=== PATIENT | female | born 1975 | race African-American/Black ===

== ENCOUNTER 2018-09-12 23:24 | Emergency (ER) | payer BC ==
[~2018-09-12] VITALS: Ht 160 cm; Wt 113.4 kg
--- OUTSIDE RECORDS SUMMARY | 2018-09-12 23:27 | XMS REPORT | Clinical Summary ---
Author Author [facility] Address Unknown Phone Unavailable Care Team Providers Care [employer] Supervisor Name Role Phone Elliot Christiansen MD PCP Allergies No Known Allergies Medications End Date Status Medication Sig Dispensed Refills Start Date 10/24/2017 Discontinued traMADol (ULTRAM) 50 mg Take 1 tablet 60 tablet 0 tablet (50 mg total) 7 by mouth every 4 (four) hours as needed for moderate pain. 10/24/2017 Discontinued liraglutide (SAXENDA) 3 Inject 3 mg 15 mL 3 mg/0.5 mL (18 mg/3 mL) under the 7 pen injectorIndications: skin daily Weight Loss Management Indications: for Obese Patient (BMI Weight Loss >=30) Management for Obese Patient (BMI >=30). 01/11/2018 cholecalciferol, vitamin Take 1 8 capsule 0 D3, 50,000 unit capsule capsule 8 (50,000 Units total) by mouth once a week for 60 days. Active Problems Problem Noted Date Leucocytosis 04/24/2017 Well woman exam with routine gynecological exam 04/07/2017 Paradoxical insomnia 04/07/2017 Morbid obesity due to excess calories 04/07/2017 Screening for cervical cancer 04/07/2017 Screen for STD (sexually transmitted disease) 04/07/2017 Encounters Care Team Description Date Type Specialty Jen Garcia MD 11/12/2017 Orders Only Internal Medicine Jen Garcia MD Endometriosis; Uterine leiomyoma, unspecified location 11/02/2017 Hospital Radiology Encounter Jen Garcia MD Screening mammogram, encounter for 10/27/2017 Hospital Radiology Encounter Jen Garcia MD No Show 10/26/2017 Hospital Radiology Encounter Jen Garcia MD Routine general medical examination at a health care facility (Primary Dx); Other fatigue; Sleep apnea, unspecified type; Nonintractable headache, unspecified chronicity pattern, unspecified headache type; Leukocytosis, unspecified type; Abdominal pain, unspecified abdominal location; Endometriosis; Uterine leiomyoma, unspecified location; Screening mammogram, encounter for 10/24/2017 Office Visit Internal Medicine Toyin Espitia MD 09/29/2017 Telephone General Surgery after 09/11/2017 Family History Medical History Relation Name Comments Asthma Brother Eczema Brother Asthma Father Cancer Father prostate Diabetes Father Eczema Father Prostate cancer Father Diabetes Mother Hypertension Mother Relation Name Status Comments Brother Alive Father Alive Mother Alive Social History Date Tobacco Use Types Packs/Day Years Used Never Smoker Smokeless Tobacco: Never Used Tobacco Cessation: Counseling Given: No Alcohol Use Drinks/Week oz/Week Comments No Sex Assigned at Date Recorded Not on file Industry Job Start Date Occupation Not on file Not on file Not on file Travel End Travel History Travel Start No recent travel history available. Last Filed Vital Signs Time Taken Vital Sign Reading 10/24/2017 9:25 AM TREATMENT SUPERVISOR Blood Pressure 129/88 10/24/2017 9:25 AM TREATMENT SUPERVISOR Pulse 71 10/24/2017 9:25 AM TREATMENT SUPERVISOR Temperature 36.7 C (98 F) - Respiratory Rate - 10/24/2017 9:25 AM TREATMENT SUPERVISOR Oxygen Saturation 100% - Inhaled Oxygen - Concentration 11/02/2017 11:00 AM TREATMENT SUPERVISOR Weight 113 kg (250 lb) 10/24/2017 9:25 AM TREATMENT SUPERVISOR Height 160 cm (5' 3") 11/02/2017 11:00 AM TREATMENT SUPERVISOR Body Mass Index 44.29 Plan of Treatment Health Maintenance Due Date Last Done Comments INFLUENZA VACCINE 04/11/2018 CERVICAL CANCER SCREENING 04/12/2020 04/12/2017, 04/07/2014 Procedures Comments Procedure Name Priority Date/Time Associated Diagnosis MRI PELVIS UTERINE Routine 11/02/2017 Endometriosis FIBROIDS 12:01 PM TREATMENT SUPERVISOR Uterine leiomyoma, unspecified location MAMMO BREAST SCREEN Routine 10/27/2017 Screening mammogram, TOMOSYNTHESIS BILATERAL 10:41 AM TREATMENT SUPERVISOR encounter for ECG 12-LEAD Routine 10/24/2017 Routine general medical 11:41 AM TREATMENT SUPERVISOR examination at a health care facility FERRITIN LEVEL Routine 10/24/2017 Routine general medical 10:47 AM TREATMENT SUPERVISOR examination at a health care facility Other fatigue VITAMIN D 25 HYDROXY Routine 10/24/2017 Routine general medical LEVEL 10:47 AM TREATMENT SUPERVISOR examination at a health care facility VITAMIN B12 LEVEL Routine 10/24/2017 Routine general medical 10:47 AM TREATMENT SUPERVISOR examination at a health care facility URINALYSIS, AUTOMATED Routine 10/24/2017 Routine general medical WITH MICROSCOPY 10:47 AM TREATMENT SUPERVISOR examination at a health care facility THYROID STIMULATING Routine 10/24/2017 Routine general medical HORMONE 10:47 AM TREATMENT SUPERVISOR examination at a health care facility T4, FREE Routine 10/24/2017 Routine general medical 10:47 AM TREATMENT SUPERVISOR examination at a health care facility T3, FREE Routine 10/24/2017 Routine general medical 10:47 AM TREATMENT SUPERVISOR examination at a health care facility LIPID PANEL Routine 10/24/2017 Routine general medical 10:47 AM TREATMENT SUPERVISOR examination at a health care facility HEMOGLOBIN A1C Routine 10/24/2017 Routine general medical 10:47 AM TREATMENT SUPERVISOR examination at a health care facility COMPREHENSIVE METABOLIC Routine 10/24/2017 Routine general medical PANEL 10:47 AM TREATMENT SUPERVISOR examination at a health care facility after 09/11/2017 Results * MRI Pelvis Uterine Fibroids (11/02/2017 12:01 PM TREATMENT SUPERVISOR) Narrative Performed At EXAMINATION:MRI PELVIS UTERINE FIBROIDS [facility] CLINICAL HISTORY:N80.9 Endometriosisunspecified, D25.9 Leiomyoma of uterusunspecified, fibroids TECHNIQUE:Multiplanar, multisequence MR imaging examination of the pelvis obtained prior to and following gadolinium IV contrast. COMPARISON:Pelvic ultrasound, 04/17/2017 IMPRESSION: 1.Uterus is lobulated in contours due to multiple fibroids. Overall it measures 10.3 x 9.7 x 9.3 cm. 2.Numerous intramural and partially exophytic subserosal fibroids. The majority are viable and enhance uniformly, though several are necrotic and degenerated.The largest of these is intramural fibroid along the ventral aspect of the uterine corpus at midline measuring 4 cm in diameter. It demonstrates a hypointense rim with some blooming, corresponding to the rim calcification demonstrated on the ultrasound.A couple subserosal fibroid along the left side of the uterine corpus each measuring 1.8 cm, a smaller intramural fibroid posteriorly at midline measuring 1 cm, and an intramural fibroid along the right side of the uterine corpus measuring 1.7 cm are likewise necrotic and degenerated. 3.The largest viable fibroid is partially exophytic subserosal along the dorsal aspect of the uterine fundus at midline measuring 4 cm. The majority of the fibroids, which essentially completely replace the uterus, enhance uniformly. 4.The endometrial stripe is not discernible due to the numerous fibroids throughout the uterus. 5.Follicles on each ovary without focal lesion on either side. 6.Trace free fluid in the pelvis is likely physiologic. No lymphadenopathy identified. Tampon in the vagina. 7.Visualized bones show no suspicious lesion. 8.Visualized portions of the sciatic nerves are well-maintained. SUMMARY: Fibroids throughout the uterus as detailed above. Nonvisualization of the endometrium. [facility]-[id number] Procedure Note [facility], Radiology Results Incoming - 11/02/2017 3:32 PM TREATMENT SUPERVISOR EXAMINATION: MRI PELVIS UTERINE FIBROIDS CLINICAL HISTORY: N80.9 Endometriosis unspecified, D25.9 Leiomyoma of uterus unspecified, fibroids TECHNIQUE: Multiplanar, multisequence MR imaging examination of the pelvis obtained prior to and following gadolinium IV contrast. COMPARISON: Pelvic ultrasound, 04/17/2017 IMPRESSION: 1. Uterus is lobulated in contours due to multiple fibroids. Overall it measures 10.3 x 9.7 x 9.3 cm. 2. Numerous intramural and partially exophytic subserosal fibroids. The majority are viable and enhance uniformly, though several are necrotic and degenerated. The largest of these is intramural fibroid along the ventral aspect of the uterine corpus at midline measuring 4 cm in diameter. It demonstrates a hypointense rim with some blooming, corresponding to the rim calcification demonstrated on the ultrasound. A couple subserosal fibroid along the left side of the uterine corpus each measuring 1.8 cm, a smaller intramural fibroid posteriorly at midline measuring 1 cm, and an intramural fibroid along the right side of the uterine corpus measuring 1.7 cm are likewise necrotic and degenerated. 3. The largest viable fibroid is partially exophytic subserosal along the dorsal aspect of the uterine fundus at midline measuring 4 cm. The majority of the fibroids, which essentially completely replace the uterus, enhance uniformly. 4. The endometrial stripe is not discernible due to the numerous fibroids throughout the uterus. 5. Follicles on each ovary without focal lesion on either side. 6. Trace free fluid in the pelvis is likely physiologic. No lymphadenopathy identified. Tampon in the vagina. 7. Visualized bones show no suspicious lesion. 8. Visualized portions of the sciatic nerves are well-maintained. SUMMARY: Fibroids throughout the uterus as detailed above. Nonvisualization of the endometrium. [facility]-[id number] Performing Organization Address [facility] Phone Number [email or web address] [address] [place] [address] * Mammo Breast Screen Tomosynthesis Bilateral (10/27/2017 10:41 AM TREATMENT SUPERVISOR) Narrative Performed At PROCEDURE:MAMMO BREAST SCREEN [facility] TECHNIQUE: Tomosynthesis images with reconstructed images and computed aided detection (CAD) is utilized in the interpretation of this exam. COMPARISON: 10/12/2015, 06/28/2016 HISTORY: 42-year-old female presents for screening mammogram. No current breast issues. No family history of breast cancer. FINDINGS: The breasts are heterogeneously dense which could obscure the detection of small masses. No masses or malignant calcifications are identified. IMPRESSION: No specific mammographic evidence of malignancy. RECOMMENDATION: Next screening mammogram with tomosynthesis is recommended in one year. BI-RADS 1: Negative This facility is accredited by The [place] [employer] for Mammography. A negative x-ray report should not delay biopsy if a dominant or clinically suspicious mass is present. Not all cancers are identified by x-ray.Should you note any changes during your monthly breast self-examination, please notify your doctor.In addition to the above, we recommend you have a breast examination by your healthcare provider every year. [id number] Performing Organization Address [facility]/[employer] Phone Number [employer] [address] [place] [address] * ECG 12 lead (10/24/2017 11:41 AM TREATMENT SUPERVISOR) Ventricular rate 64 [facility] Atrial rate 64 [facility] WI interval 148 [facility] QRSD interval 88 [facility] QT interval 408 [facility] QTC interval 420 [facility] MUSE P axis 1 29 [facility] MUSE QRS axis 1 30 [facility] MUSE T wave axis 26 [facility] MUSE EKG impression Normal sinus rhythm-Normal [facility] MUSE ECG-No previous ECGs available- Performing Organization Address [facility] Phone Number [facility] MUSE [address] [place] [address] * Vitamin D 25 hydroxy level (10/24/2017 10:47 AM TREATMENT SUPERVISOR) Vitamin D, 25-hydroxy 19 (L) 30 - 100 ng/mL [facility] Comment: [facility] Vitamin D Status 25-OH Vitamin D: Deficiency: <20 ng/mL Insufficiency: 20 - 29 ng/mL Optimal: > or=30 ng/mL For 25-OH Vitamin D testing on patients on D2-supplementation and patients for whom quantitation of D2 and D3 fractions is required, the QuestAssureD(TM) 25-OH VIT D, (D2,D3), LC/MS/MS is recommended: order code [id number] (patients >2yrs). For more information on this test, go to: http://education.[employer]/faq/QXQ388 (This link is being provided for informational/educational purposes only.) Specimen Blood Resulting Agency Comment Performing Organization Information: Site ID: [id number] Name: [facility] Address: [address] [place] [phone] Director: Beti Marks MD Performing Organization Address [facility] Phone Number [place] [address] * Urinalysis, automated with microscopy (10/24/2017 10:47 AM TREATMENT SUPERVISOR) Color, UA DARK YELLOW YELLOW [facility] Appearance CLEAR CLEAR [facility] [place] Specific gravity, urine 1.025 1.001 - 1.035 [facility] [place] pH, urine 5.5 5.0 - 8.0 [facility] [place] Glucose, urine NEGATIVE NEGATIVE [facility] [place] Bilirubin, UA NEGATIVE NEGATIVE [facility] [place] Ketones, UA NEGATIVE NEGATIVE [facility] [place] Occult blood, urine NEGATIVE NEGATIVE [facility] [place] Protein, UA NEGATIVE NEGATIVE [facility] [place] Nitrite, UA NEGATIVE NEGATIVE [facility] [place] Leukocyte esterase, UA NEGATIVE NEGATIVE [facility] WBC, UA NONE SEEN < OR=5 /HPF [facility] [place] RBC, UA NONE SEEN < OR=2 /HPF [facility] [place] Squamous epithelial 0-5 < OR=5 /HPF [facility] cells, UA [facility] Bacteria, UA NONE SEEN NONE SEEN /HPF [facility] [place] Hyaline casts, UA NONE SEEN NONE SEEN /LPF [facility] Specimen Urine Resulting Agency Comment Performing Organization Information: Site ID: [id number] Name: [facility] Address: [address] [place] [phone] Director: Beti Marks MD Performing Organization Address [facility] Phone Number [place] [address] * T3, free (10/24/2017 10:47 AM TREATMENT SUPERVISOR) T3, free 2.5 2.3 - 4.2 pg/mL [facility] Specimen Blood Resulting Agency Comment Performing Organization Information: Site ID: [id number] Name: [facility] Address: [address] [place] [phone] Director: Beti Marks MD Performing Organization Address [facility] Phone Number [place] [address] * Thyroid stimulating hormone (10/24/2017 10:47 AM TREATMENT SUPERVISOR) TSH 0.67 mIU/L [facility] Comment: [facility] Reference Range > or=20 Years0.40-4.50 Ranges First trimester0.26-2.66 Second trimester 0.55-2.73 Third trimester0.43-2.91 Specimen Blood Resulting Agency Comment Performing Organization Information: Site ID: [facility] Name: [facility] Address: [address] [place] [phone] Director: Beti Marks MD Performing Organization Address [facility] Phone Number [place] [address] * T4, free (10/24/2017 10:47 AM TREATMENT SUPERVISOR) T4, free 1.0 0.8 - 1.8 ng/dL [facility] Specimen Blood Resulting Agency Comment Performing Organization Information: Site ID: [facility] Name: [facility] Address: [address] [place] [phone] Director: Beti Marks MD Performing Organization Address [facility] Phone Number [employer] [address] [phone] * Hemoglobin A1c (10/24/2017 10:47 AM TREATMENT SUPERVISOR) Hemoglobin A1C 5.5 <5.7 % of total Hgb [facility] Comment: [facility] For the purpose of screening for the presence of diabetes: <5.7% Consistent with the absence of diabetes 5.7-6.4%Consistent with increased risk for diabetes (predi abetes) > or=6.5%Consistent with diabetes This assay result is consistent with a decreased risk of diabetes. Currently, no consensus exists regarding use of hemoglobin A1c for diagnosis of diabetes in children. According to [place] [employer] Association (ADA) guidelines, hemoglobin A1c <7.0% represents optimal control in non- diabetic patients. Different metrics may apply to specific patient populations. Standards of Medical Care in Diabetes(ADA). Specimen Blood Resulting Agency Comment Performing Organization Information: Site ID: [facility] Name: [facility] Address: [address] [place] [phone] Director: Beti Marks MD Performing Organization Address [facility] Phone Number [place] [address] * Ferritin level (10/24/2017 10:47 AM TREATMENT SUPERVISOR) Ferritin level 14 10 - 232 ng/mL [facility] Specimen Blood Resulting Agency Comment Performing Organization Information: Site ID: [facility] Name: [facility] Address: [address] [place] [phone] Director: Beti Marks MD Performing Organization Address [facility]/Zipcode Phone Number [employer] [address] [phone] * Vitamin B12 level (10/24/2017 10:47 AM TREATMENT SUPERVISOR) Vitamin B12 411 200 - 1,100 pg/mL [facility] Specimen Blood Resulting Agency Comment Performing Organization Information: Site ID: [facility] Name: [facility] Address: [address] [place] [phone] Director: Beti Marks MD Performing Organization Address [facility] Phone Number [place] [address] * Lipid panel (10/24/2017 10:47 AM TREATMENT SUPERVISOR) Cholesterol, total 219 (H) <200 mg/dL [facility] HDL cholesterol 55 >50 mg/dL [facility] Triglycerides 157 (H) <150 mg/dL [facility] LDL cholesterol 135 (H) mg/dL (calc) [facility] calculated Comment: [facility] Reference range: <100 Desirable range <100 mg/dL for patients with CHD or diabetes and <70 mg/dL for diabetic patients with known heart disease. LDL-C is now calculated using the Earl calculation, which is a validated novel method providing better accuracy than the Friedewald equation in the estimation of LDL-C. Xavier SINHA et al. SELVIN. 2013;310(19): 9087-7947 (http://education.[employer]/faq/QME800) Cholesterol/HDL ratio 4.0 <5.0 (calc) [facility] Non-HDL cholesterol 164 (H) <130 mg/dL (calc) [facility] Comment: [facility] For patients with diabetes plus 1 major ASCVD risk factor, treating to a non-HDL-C goal of <100 mg/dL (LDL-C of <70 mg/dL) is considered a therapeutic option. Specimen Blood Resulting Agency Comment Performing Organization Information: Site ID: [facility] Name: [facility] Address: [address] [place] [phone] Director: Beti Marks MD Performing Organization Address [facility] Phone Number [employer] [facility] [address] [place] [address] * Comprehensive metabolic panel (10/24/2017 10:47 AM TREATMENT SUPERVISOR) Glucose 79 65 - 99 mg/dL [facility] Comment: [facility] Fasting reference interval BUN, whole blood 12 7 - 25 mg/dL [facility] [place] Creatinine 0.88 0.50 - 1.10 mg/dL [facility] EGFR Non-Afr. [place]ese 81 > OR=60 mL/min/1.73m2 [facility] EGFR 94 > OR=60 mL/min/1.73m2 [facility] BUN/creatinine ratio NOT APPLICABLE 6 - 22 (calc) [facility] Sodium 138 135 - 146 mmol/L [facility] Potassium 4.1 3.5 - 5.3 mmol/L [facility] Chloride 103 98 - 110 mmol/L [facility] CO2 24 20 - 31 mmol/L [facility] Calcium 9.4 8.6 - 10.2 mg/dL [facility] Protein 6.6 6.1 - 8.1 g/dL [facility] Albumin, S 4.1 3.6 - 5.1 g/dL [facility] Globulin, total 2.5 1.9 - 3.7 g/dL (calc) [facility] Albumin/globulin ratio 1.6 1.0 - 2.5 (calc) [facility] Total bilirubin 0.5 0.2 - 1.2 mg/dL [facility] Alkaline phosphatase 83 33 - 115 U/L [facility] AST 15 10 - 30 U/L [facility] ALT 10 6 - 29 U/L [facility] Specimen Blood Resulting Agency Comment Performing Organization Information: Site ID: [facility] Name: [facility] Address: [address] [place] [phone] Director: Beti Marks MD Performing Organization Address City/State/Zipcode Phone Number [facility] [address] [place] [address] [phone] after 09/11/2017 Insurance Payer Benefit Subscriber ID Type Phone Address Plan / Group BCBS BCBS xxxxxxxxxxxx PPO CHOICE PPO/FEDERA L EMPL PPO Advance Directives Patient has advance care planning documents on file. For more information, tiffany guerin contact: Agustin Martinez [address] [place] [address]
--- OUTSIDE RECORDS SUMMARY | 2018-09-12 23:28 | XMS REPORT ---
Author Author Fiorella Morales [facility] [employer] Address Unknown Phone Unavailable Care Team Providers Care Housekeeping/Laundry Name Role Phone Fiorella Morales Unavailable Encounters Encounter Location Date yearly physical,period issues [facility] Jun 10, 2014 follow up for wt loss [facility] Jul 14, 2014 Cancel Appointment Request [facility] Aug 09, 2014 Problems Problem Type Condition ICD-9 Code Onset Dates Condition Status Problem Obesity (BMI 30-39.9) 278.00 Active Problem Menorrhagia 626.2 Active Problem BMI 38.0-38.9,adult V85.38 Active Social History Social History Element Qualifiers Date Reported Sexual History: . Are you currently sexually active? Yes, Partner Preference: Heterosexual, Do you use a form of protection? No, Have you ever had an STD? Yes, Which type? Syphilis Jul 14, 2014 Tobacco Use: . Are you a: never smoker, Do you use alternate forms of tobacco? No, Additional Findings: Tobacco Non-User Current non-smoker Jul 14, 2014 Use of recreational / street drugs? . Answer: No Jul 14, 2014 Do you have pets? . Status: No Jul 14, 2014 Marital Status: . Jul 14, 2014 Caffeine intake? . Status: Yes, What type: Coffee, Soft Drinks, How often? Daily Jul 14, 2014 Do you exercise? . Answer: Yes, Type: walking, How often? Daily Jul 14, 2014 Do you drink alcohol? . Status: No Jul 14, 2014 Summary Purpose [employer] Submission
--- OUTSIDE RECORDS SUMMARY | 2018-09-12 23:28 | XMS REPORT ---
Author Author Fiorella Morales Organization [employer] Address Unknown Phone Unavailable Care Team Providers Care Pad Making Machine Operator Name Role Phone Fiorella Morales Unavailable Allergies, Adverse Reactions, Alerts Substance Reaction Event Type N.K.D.A. Info Not Available Non Drug Allergy Encounters Encounter Location Date yearly physical,period issues [facility] Jun 10, 2014 follow up for wt loss [facility] Jul 14, 2014 Cancel Appointment Request [facility] Aug 09, 2014 Problems Problem Type Condition ICD-9 Code Onset Dates Condition Status Problem Obesity (BMI 30-39.9) 278.00 Active Problem Menorrhagia 626.2 Active Problem BMI 38.0-38.9,adult V85.38 Active Assessment BMI 38.0-38.9,adult V85.38 Active Assessment Contraception V25.9 Active Assessment Obesity (BMI 30-39.9) 278.00 Active Medications Medication Code System Code Instructions Start Date End Date Status Dosage Ortho Tri-Cyclen (28) [facility] [id number] 0.18/0.215/0.25 MG-35 MCG Orally Once a day Jul 14, 2014 Active 1 tablet Phentermine HCl [facility] [address]-16 37.5 MG Orally daily Jul 14, 2014 Aug 13, 2014 Active as directed Social History Social History Element Qualifiers Date [...] alcohol? . Status: No Jul 14, 2014 Vital Signs Date/Time: Jul 14, 2014 Weight 223.4 lbs Height 63 in Temperature 98.6 F Cardiac Monitoring Heart Rate 76 /min Blood Pressure Diastolic 89 mm Hg Blood Pressure Systolic 140 mm Hg Summary Purpose [employer]ClinicalWorks Submission
--- OUTSIDE RECORDS SUMMARY | 2018-09-12 23:28 | XMS REPORT | Encounter Summary ---
Author Organization Unknown Address [address] [place] [address] Phone [phone] Reason for Visit Medical Complaint Instructions 1. Upper respiratory infection upper respiratory infection (cold): care instructions amoxicillin 875 mg tablet Medrol (Ronnie) 4 mg tablets in a dose pack benzonatate 200 mg capsule 2. Influenza-like symptoms rapid flu (A+B) 3. Elevated blood-pressure reading without diagnosis of hypertension 4. Body mass index 40+ - severely obese body mass index: care instructions Discussion Note Pt is in NAD; Verbalizes understanding of all instructions with no questions at this time. Plan of Care Patient Instructions Theraflu. Alternate with Ibuprofen and acetaminophen every 4hrs as needed. Start Benzonatate for cough. Take Sterpid taper as directed and with food to avoid GI discomfort. Start antibiotic and take as directed with food. Take fluticasone as needed for congestion. [place] one spray in each nostril twice a day. Take a warm, steamy shower, blow your nose thereafter, and spray in each nostril. Tilt your head up for about 10 seconds and breath through your mouth. Do not sniff or snort the medication in or else the medication will go to your throat and not be absorbed appropriately. Take medications as prescribed and follow up with a PCP within 2-3 if symptoms worsen as discussed. In case of emergency call 911 or go to nearest ER. Recommend monitor BP at home and document, bring BP log to PCP for review. Recommend follow a low sodium/fat/carb diet and exercise 30-45 mins/d 3-4 days a week once symptoms resolve. Reminders Provider Appointments None recorded. Lab Rapid Flu (A+B) 12/29/2017 [facility] Referral None recorded. Procedures None recorded. Surgeries None recorded. Imaging None recorded. Medications Name Start Date amoxicillin 875 mg tablet Take 1 tablet every 12 hours by oral route as directed for 10 days. benzonatate 200 mg capsule Take 1 capsule 3 times a day by oral route as needed. Medrol (Ronnie) 4 mg tablets in a dose pack Take PO as directed Medications Administered None recorded. Vitals Height Weight BMI Blood Pressure 5 ft 3 in 245 lbs 43.4 kg/m2 (1) 128/94 mm[Hg] (2) 125/80 mm[Hg] Lab Results Date Name Specimen Result Interpretation Description Value Range Status Address Rapid Flu (A+B) Influenza a negative [facility]: [address] [place] [address] Influenza B negative [facility]: [address] [place] [address] Allergies Code Code System Name Reaction Severity Status Onset NKDA Problems Name Status Onset Date Source Upper Respiratory Infection Active 12/29/2017 Influenza-like Symptoms Active 12/29/2017 Elevated Blood-pressure Reading without Diagnosis of Hypertension Active 12/29/2017 Body Mass Index 40+ - Severely Obese Active 12/29/2017 Procedures Date Name Performed by Removal of Ovarian Cyst(s) Information not available Appendectomy Information not available Vaccine List None recorded. Social History Smoking Status Never Smoker Past Encounters 12/29/2017 Upper Respiratory Infection; Influenza-like Symptoms; Elevated Blood-pressure Reading without Diagnosis of Hypertension; Body Mass Index 40+ - Severely Obese Lizabeth Lewis, [facility]-C: [address] [place] [address], Ph. History of Present Illness Fuldwnp-Phtah-Rxq Reported By: Patient HPI: Quality: symptoms worse during the day. Duration: constant. Severity: subjective temperature. Context: no ill contacts, no tick/insect bites, no recent travel, no new medications. Associated Symptoms: no fever/chills, no muscle aches, no rash, no lethargy, headache, cold symptoms, cough, nasal discharge; feeling feverish and body aches. Modifying Factors nothing gives relief Note:
Review of Systems Basic Reported By: Patient Constitutional: Constitutional: ; feeling feverish and body aches Eyes: Eyes: no eye complaints Ltot-Djso-Pwtnw-Throat: Ears: no ear complaints. Nose: nose/sinus problems. Mouth/Throat: no sore throat, no bleeding gums, no mouth complaints, no teeth problems Cardiovascular: Cardiovascular: no chest pain, no shortness of breath, no known heart murmur Respiratory: Respiratory: no wheezing, no shortness of breath, cough Gastrointestinal: Gastrointestinal: no abdominal pain, no vomiting / diarrhea Genitourinary: Genitourinary: no urinary complaints, no discharge Musculoskeletal: Musculoskeletal: no muscle aches, no muscle weakness, no arthralgias/joint pain, no back pain Skin: Skin: no abnormal / changing mole, no jaundice, no rashes Neurologic: Neurologic: no loss of consciousness, no weakness, no numbness, no seizures, no dizziness, no headaches, headache Physical Exam Adult Basic, Adult Female Complete Reported By: Patient Constitutional: General Appearance: obese. Level of Distress: NAD. Ambulation: ambulating normally Psychiatric: Mental Status: active and alert. Orientation: to time, to place, to person Eyes: Lids and Conjunctivae: non-injected, no discharge, no pallor. Pupils: PERRLA. Corneas: grossly intact. EOM: EOMI. Lens: clear. Vision: acuity grossly intact Qht-Ckgi-Sxqvt-Throat: Ears: no lesions on external ear, no outer ear tenderness, EACs clear, TMs clear. Nose: no lesions on external nose, nares patent, no septal deviation, nasal passages clear, no sinus tenderness, nasal d ischarge--rhinorrhea. Lips, Teeth, and Gums: no mouth or lip ulcers, no bleeding gums, normal dentition. Oropharynx: moist mucous membranes, no erythema, no exudates, tonsils not enlarged Neck: Neck: supple. Lymph Nodes: no cervical LAD Lungs: Respiratory effort: no dyspnea, no tachypnea, no use of accessory muscles, no intercostal retractions. Auscultation: breath sounds normal Cardiovascular: Heart Auscultation: RRR, no murmurs Neurologic: Gait and Station: normal gait, normal station. Cranial Nerves: grossly intact. Sensation: grossly intact. Reflexes: DTRs 2+ bilaterally throughout. Coordination and Cerebellum: jdztaj-ua-olog intact, no tremor
--- OUTSIDE RECORDS SUMMARY | 2018-09-12 23:28 | XMS REPORT | Summary of Care ---
Author Author [facility] Organization [facility] Address Unknown Phone Unavailable Encounter HQ Lola_blake(FIN) [id number] Date(s): 12/31/15 - 12/31/15 [facility] [address] [place] [address]- [phone] Discharge Disposition: Home Attending Physician: Fiorella Morales MD Vital Signs No data available for this section Problem List No data available for this section Allergies, Adverse Reactions, Alerts No data available for this section Medications No data available for this section Results No data available for this section Immunizations No data available for this section Procedures No data available for this section Social History No data available for this section Assessment and Plan No data available for this section
--- OUTSIDE RECORDS SUMMARY | 2018-09-12 23:28 | XMS REPORT | Continuity of Care Document ---
Author Author [facility] Interface Address Unknown Phone Unavailable Problems Problem Status Onset Date Classification Date Reported Comments Source Body mass index 40+ - severely obese 12/29/2017 Diagnosis 12/29/2017 [facility] Elevated blood-pressure reading without diagnosis of hypertension 12/29/2017 Diagnosis 12/29/2017 [facility] Influenza-like symptoms 12/29/2017 Diagnosis 12/29/2017 [facility] Upper respiratory infection 12/29/2017 Diagnosis 12/29/2017 [facility] Upper Respiratory Infection 12/29/2017 Problem 12/29/2017 [facility] Influenza-like Symptoms 12/29/2017 Problem 12/29/2017 [facility] Elevated Blood-pressure Reading without Diagnosis of Hypertension 12/29/2017 Problem 12/29/2017 [facility] Body Mass Index 40+ - Severely Obese 12/29/2017 Problem 12/29/2017 [facility] M54.9, M54.2, M25.519, M79.671 Active 12/31/2015 [facility] Obesity Active Problem 01/01/2016 [facility] Menorrhagia Active Problem 01/01/2016 [facility] BMI 38.0-38.9,adult Active Problem 01/01/2016 [facility] Routine general medical examination at a health care facility Active Diagnosis 07/09/2014 [facility] Shoulder pain Active Diagnosis 01/01/2016 [facility] Back pain Active Diagnosis 01/01/2016 [facility] Neck pain Active Diagnosis 01/01/2016 [facility] Right foot pain Active Diagnosis 01/01/2016 [facility] Contraception Active Diagnosis 08/19/2014 [facility] Medications Medication Details Route Status Patient Instructions Ordering Provider Order Date Source Naproxen 1 tablet Orally Active 500 mg Orally Twice a day Andrew 12/31/2015 [facility] Amitriptyline HCl 1 tablet Orally Active 25 MG Orally Once a day Andrew 12/31/2015 [facility] Robaxin 1 tablet Orally Active 500 MG Orally three times a day (tid) as needed (prn) Andrew 12/31/2015 [facility] Tramadol HCl 1 tablet as needed Orally Active 50 mg Orally every 6 hrs as needed [facility] 12/31/2015 [facility] Ortho Tri-Cyclen (28) 1 tablet Orally Active 0.18/0.215/0.25 MG-35 MCG Orally Once a day [facility] 07/14/2014 [facility] Phentermine HCl as directed Orally Active 37.5 MG Orally daily [facility] 07/14/2014 [facility] Amoxicillin 875 MG Oral Tablet amoxicillin 875 mg tablet Take 1 tablet every 12 hours by oral route as directed for 10 days. Active [facility] benzonatate 200 MG Oral Capsule benzonatate 200 mg capsule Take 1 capsule 3 times a day by oral route as needed. Active [facility] Medrol (Ronnie) 4 mg tablets in a dose pack Medrol (Ronnie) 4 mg tablets in a dose pack Take PO as directed Active [facility] Allergies, Adverse Reactions, Alerts Substance Category Reaction Severity Reaction type Status Date Reported Comments Source N.K.D.A. Adverse Reaction Info Not Available Adverse Reaction Active 12/31/2015 [facility] Immunizations Immunization Date Given Site Status Last Updated Comments Source Results Order Name Results Value Reference Range Date Interpretation Comments Source Influenza A negative 12/29/2017 [facility] Influenza B negative 12/29/2017 [facility] Spine cervical series DX Spine cervical series DX Study: Cervical spine, 5 views Clinical Indication: Neck pain status post fall Comparison: None FINDINGS: Multiple views of the cervical spine show visualization through the top of the T1 vertebral body on the lateral view. No acute vertebral body height loss or subluxation is seen. Intervertebral disc spaces are well-maintained. Neural foramen are patent bilaterally. Odontoid process is intact. Prevertebral soft tissues are unremarkable. IMPRESSION: No acute bony abnormality of the cervical spine. SL: [id number] 12/31/2015 - - Read by: Fox Baker MD Dictated Date/time: 12/31/15 14:33 Electronically Signed by: Fox Baker MD 12/31/15 14:34 FINAL REPORT [facility] Shoulder 2+ Views Bilateral DX Shoulder 2+ Views Bilateral DX Study: Bilateral shoulders, 6 views Clinical Indication: Bilateral shoulder pain status post fall Comparison: None FINDINGS: Multiple views of the bilateral shoulders show no acute bony fracture or joint dislocation. Soft tissues are unremarkable. IMPRESSION: No acute bony abnormality of the bilateral shoulders. SL: [id number] 12/31/2015 - - Read by: Fox Baker MD Dictated Date/time: 12/31/15 14:34 Electronically Signed by: Fox Baker MD 12/31/15 14:34 FINAL REPORT [facility] Spine thoracic 3 views DX Spine thoracic 3 views DX Study: Thoracic spine, 3 views Clinical Indication: Back pain status post fall Comparison: None FINDINGS: Multiple views of the thoracic spine show no acute compression fracture or subluxation. Intervertebral disc spaces are well-maintained. IMPRESSION: No acute bony abnormality of the thoracic spine. SL: [id number] 12/31/2015 - - Read by: Fox Baker MD Dictated Date/time: 12/31/15 14:31 Electronically Signed by: Fox Baker MD 12/31/15 14:32 FINAL REPORT [facility] Foot series DX Foot series DX Study: Right foot, 3 views Clinical Indication: M79.671 Pain in right foot Comparison: None FINDINGS: Multiple views of the right foot show no acute bony fracture, joint dislocation, or suspicious osseous lesion. Mild dorsal forefoot soft tissue swelling is seen. IMPRESSION: No acute bony abnormality of the right foot. SL: [id number] 12/31/2015 - - Read by: Fox Baker MD Dictated Date/time: 12/31/15 14:30 Electronically Signed by: Fox Baker MD 12/31/15 14:31 FINAL REPORT [facility] Spine lumbar series DX Spine lumbar series DX Study: Lumbar spine, 5 views Clinical Indication: Lower back pain status post fall Comparison: None FINDINGS: Multiple views of the lumbar spine show 5 nonrib-bearing lumbar vertebra. No acute compression fracture or subluxation is seen. Mild disc height loss at L4-L5 is seen, compatible with mild degenerative disc disease. Severe disc height loss at L5-S1 is also noted, compatible with severe degenerative disc disease. Bilateral L5 pars interarticularis defects are seen. IMPRESSION: 1. Advanced degenerative disc disease of the lower lumbar spine. 2. Incidentally noted bilateral L5 pars interarticularis defects. SL: [id number] 12/31/2015 - - Read by: Fox Baker MD Dictated Date/time: 12/31/15 14:32 Electronically Signed by: Fox Baker MD 12/31/15 14:33 FINAL REPORT [facility] Vital Signs Vital Sign Value Date Comments Source Diastolic (mm Hg) 80 12/29/2017 [facility] Height 63 12/29/2017 [facility] Systolic (mm Hg) 125 12/29/2017 [facility] Weight 245 12/29/2017 [facility] Weight 245.1 12/31/2015 [facility] Height 63 12/31/2015 [facility] Temperature Oral (F) 98.6 F 12/31/2015 [facility] Heart Rate 93 12/31/2015 [facility] Diastolic (mm Hg) 87 12/31/2015 [facility] Systolic (mm Hg) 126 12/31/2015 [facility] Weight 223.4 07/14/2014 [facility] Height 63 07/14/2014 [facility] Temperature Oral (F) 98.6 F 07/14/2014 [facility] Heart Rate 76 07/14/2014 [facility] Diastolic (mm Hg) 89 07/14/2014 [facility] Systolic (mm Hg) 140 07/14/2014 [facility] Weight 219.3 06/10/2014 [facility] Height 63 06/10/2014 [facility] Temperature Oral (F) 99 F 06/10/2014 [facility] Heart Rate 75 06/10/2014 [facility] Diastolic (mm Hg) 83 06/10/2014 [facility] Systolic (mm Hg) 123 06/10/2014 [facility] Encounters Location Location Details Encounter Type Encounter Number Reason For Visit Attending Provider ADM Date DC Date Status Source [facility] yearly physical,period issues [id number] 06/10/2014 06/10/[address] [facility] yearly physical,period issues [id number] 06/10/2014 06/10/2014 [facility] yearly physical,period issues [id number] 06/10/2014 06/10/[address] [facility] yearly physical,period issues [id number] 06/10/2014 06/10/[address] [facility] follow up for wt loss [id number] 07/14/2014 07/14/[address] [facility] follow up for wt loss [id number] 07/14/2014 07/14/[address] [facility] follow up for wt loss [id number] 07/14/2014 07/14/[address] [facility] Cancel Appointment Request [id number] 08/09/2014 08/09/[address] [facility] Cancel Appointment Request [id number] 08/09/2014 08/09/[address] [facility] Cancel Appointment Request [id number] 08/09/2014 08/09/[address] [facility] Unknown [id number] 01/30/2015 01/30/[address] [facility] Patient here with complaints of back, neck and righ foot pain [id number] 12/31/2015 12/31/2015 [facility] Out[facility] [id number] Fiorella Morales 12/31/2015 01/01/2016 [facility] - [id number] Lewis, [employer]-C: [address] [place] [address], Ph. [id number] Lizabeth Lewis 12/29/2017 [facility] Procedures Procedure Code Date Perfomer Comments Source Removal of Ovarian Cyst(s) 11915 [facility] Appendectomy [facility]
--- OUTSIDE RECORDS SUMMARY | 2018-09-12 23:28 | XMS REPORT ---
Author Author Fiorella Morales Organization [employer] Address Unknown Phone Unavailable Care Team Providers Care Law Reporter Name Role Phone Andrew, Fiorella Unavailable Allergies, Adverse Reactions, Alerts Substance Reaction Event Type N.K.D.A. Info Not Available Non Drug Allergy Encounters Encounter Location Date yearly physical,period issues [facility] Jun 10, 2014 Problems Problem Type Condition ICD-9 Code Onset Dates Condition Status Problem Obesity (BMI 30-39.9) 278.00 Active Problem Menorrhagia 626.2 Active Problem BMI 38.0-38.9,adult V85.38 Active Assessment Obesity (BMI 30-39.9) 278.00 Active Assessment Menorrhagia 626.2 Active Assessment Routine general medical examination at a health care facility V70.0 Active Assessment BMI 38.0-38.9,adult V85.38 Active Social History Social History Element Qualifiers Date Reported Sexual History: . Are you currently sexually active? Yes, Partner Preference: Heterosexual, Do you use a form of protection? No, Have you ever had an STD? Yes, Which type? Syphilis Jun 10, 2014 Tobacco Use: . Are you a: never smoker, Do you use alternate forms of tobacco? No, Additional Findings: Tobacco Non-User Current non-smoker Jun 10, 2014 Use of recreational / street drugs? . Answer: No Jun 10, 2014 Do you have pets? . Status: No Jun 10, 2014 Marital Status: . Jun 10, 2014 Caffeine intake? . Status: Yes, What type: Coffee, Soft Drinks, How often? Daily Jun 10, 2014 Do you exercise? . Answer: Yes, Type: walking, How often? Daily Jun 10, 2014 Do you drink alcohol? . Status: No Jun 10, 2014 Vital Signs Date/Time: Jun 10, 2014 Weight 219.3 lbs Height 63 in Temperature 99 F Cardiac Monitoring Heart Rate 75 /min Blood Pressure Diastolic 83 mm Hg Blood Pressure Systolic 123 mm Hg Summary Purpose [employer]ClinicalWorks Submission
--- OUTSIDE RECORDS SUMMARY | 2018-09-12 23:28 | XMS REPORT ---
Author Author [facility] Address Unknown Phone Unavailable Care Team Providers Care Physician Executive Name Role Phone Unavailable Unavailable Problems This patient has no known problems. Allergies, Adverse Reactions, Alerts This patient has no known allergies or adverse reactions. Medications This patient has no known medications.
--- OUTSIDE RECORDS SUMMARY | 2018-09-12 23:28 | XMS REPORT ---
Author Author Fiorella Morales [facility] eClinicalWorks Address Unknown Phone Unavailable Care Team Providers Care Financial Services Professional Name Role Phone Fiorella Morales Unavailable Allergies, Adverse Reactions, Alerts Substance Reaction Event Type N.K.D.A. Info Not Available Non Drug Allergy Encounters Encounter Location Date Unknown [facility] January 30, 2015 Patient here with complaints of back, neck and righ foot pain [facility] December 31, 2015 yearly physical,period issues [facility] Jun 10, 2014 follow up for wt loss [facility] Jul 14, 2014 Cancel Appointment Request [facility] Aug 09, 2014 Problems Problem Type Condition ICD-9 Code Onset Dates Condition Status Assessment Shoulder pain M25.519 Active Assessment Back pain M54.9 Active Assessment Neck pain M54.2 Active Assessment Right foot pain M79.671 Active Problem Neck pain M54.2 Active Problem Shoulder pain M25.519 Active Problem Back pain M54.9 Active Problem Obesity (BMI 30-39.9) 278.00 Active Problem Menorrhagia 626.2 Active Problem Right foot pain M79.671 Active Problem BMI 38.0-38.9,adult V85.38 Active Medications Medication Code System Code Instructions Start Date End Date Status Dosage Naproxen [facility] [address]-67 500 mg Orally Twice a day December 31, 2015 January 15, 2016 Active 1 tablet Amitriptyline HCl [facility] [address]-82 25 MG Orally Once a day December 31, 2015 Active 1 tablet Robaxin [facility] [address]-07 500 MG Orally three times a day (tid) as needed (prn) December 31, 2015 January 10, 2016 Active 1 tablet [facility] Tri[facility]Cyclen (28) [facility] [address]-79 0.18/0.215/0.25 MG-35 MCG Orally Once a day Jul 14, 2014 Active 1 tablet Tramadol HCl [facility] [address]-45 50 mg Orally every 6 hrs as needed December 31, 2015 January 10, 2016 Active 1 tablet as needed Social History Social History Element Qualifiers Date Reported Sexual History: . Are you currently sexually active? Yes, Partner Preference: Heterosexual, Do you use a form of protection? No, Have you ever had an STD? Yes, Which type? Syphilis December 31, 2015 Tobacco Use: . Are you a: never smoker, Do you use alternate forms of tobacco? No, Additional Findings: Tobacco Non-User Current non-smoker December 31, 2015 Use of recreational / street drugs? . Answer: No December 31, 2015 Do you have pets? . Status: No December 31, 2015 Marital Status: . December 31, 2015 Caffeine intake? . Status: Yes, What type: Coffee, Soft Drinks, How often? Daily December 31, 2015 Do you exercise? . Answer: Yes, Type: walking, How often? Daily December 31, 2015 Do you drink alcohol? . Status: No December 31, 2015 Vital Signs Date/Time: December 31, 2015 Weight 245.1 lbs Height 63 in Temperature 98.6 F Cardiac Monitoring Heart Rate 93 /min Blood Pressure Diastolic 87 mm Hg Blood Pressure Systolic 126 mm Hg Summary Purpose eClinicalWorks Submission
[2018-09-12 23:56] LABS: BASOPHILS # (AUTO) 0.1 (0.0-0.1); BASOPHILS % 0.6 % (0.0-1.0); EOSINOPHILS # (AUTO) 0.3 (0.0-0.4); EOSINOPHILS % 2.8 % (0.0-6.0); HEMATOCRIT 37.9 % (34.2-44.1); HEMOGLOBIN 12.1 g/dL (12.0-16.0); LYMPHOCYTES # (AUTO) 2.6 (1.0-3.2); LYMPHOCYTES % 25.2 % (18.0-39.1); MEAN CORPUSCULAR HEMOGLOBIN 25.7 pg (28-32); MEAN CORPUSCULAR HGB CONC 31.9 g/dL (31-35); MEAN CORPUSCULAR VOLUME 80.6 fL (81-99); MONOCYTES # (AUTO) 0.8 (0.2-0.8); MONOCYTES % 8.1 % (4.4-11.3); NEUTROPHILS # (AUTO) 6.4 (2.1-6.9); NEUTROPHILS % 63.1 % (38.7-80.0); PLATELET COUNT 319 x10e3/uL (140-360); RED CELL DISTRIBUTION WIDTH 16.3 % (11.7-14.4)
[2018-09-13 00:06] LABS: INR 0.93; PROTHROMBIN TIME 13.3 seconds (11.9-14.5)
[2018-09-13 00:07] LABS: PARTIAL THROMBOPLASTIN TIME 31.9 seconds (23.8-35.5)
[2018-09-13 00:11] LABS: ANION GAP 14.8 mmol/L (8-16); BLOOD UREA NITROGEN 7 mg/dL (7-26); BUN/CREATININE RATIO 8 (6-25); CALCIUM 9.2 mg/dL (8.4-10.2); CARBON DIOXIDE 23 mmol/L (22-29); CHLORIDE 104 mmol/L (98-107); CREATININE, SERUM 0.89 mg/dL (0.57-1.11); EST GLOMERULAR FILTRATION RATE > 60 ML/MIN (60-); GLUCOSE 105 mg/dL (74-118); POTASSIUM 3.8 mmol/L (3.5-5.1); SODIUM 138 mmol/L (136-145)
[2018-09-13 01:28] LABS: CLARITY,URINE CLOUDY (CLEAR); COLOR,URINE AMBER (YELLOW)
[2018-09-13 01:29] LABS: BILIRUBIN,URINE NEGATIVE (NEGATIVE); KETONES,URINE NEGATIVE (NEGATIVE); LEUKOCYTE ESTERASE ,URINE NEGATIVE (NEGATIVE); NITRITE,URINE NEGATIVE (NEGATIVE); PROTEIN,URINE DIPSTICK NEGATIVE (NEGATIVE); URINE UROBILINOGEN 0.2 mg/dL (0.2 - 1)
[2018-09-13 01:39] VITALS: BP 132/79
[2018-09-13 01:43] LABS: BACTERIA,URINE MODERATE /HPF; EPITHELIAL CELLS,URINE FEW /LPF; RBC,URINE >50 /HPF (0-5); WBC,URINE (MAN) 0-5 /HPF (0-5)
== END 2018-09-13 01:54 | disposition home or self-care (01) ==
LOC: ER 23:24
DX: N92.0 Excessive and frequent menstruation with regular cycle (principal)
CPT/HCPCS: 36415; 80048; 81001; 84702; 85025; 85610; 85730; 99283